=== PATIENT | male | born 1990 | race Caucasian/White ===

== ENCOUNTER → 2020-09-10 13:59 | Outpatient (BNVA) | payer BC, SELFPAY | PROVIDERS: Family Provider Family Medicine; Referring Provider Physician Assistant; Visit Provider Specialist | DX: G56.02 Carpal tunnel syndrome, left upper limb (principal); R20.0 Anesthesia of skin; R20.2 Paresthesia of skin | CPT/HCPCS: 95908 ==

== ENCOUNTER → 2021-03-26 09:07 | Outpatient (BNVA) | payer BC, SELFPAY | PROVIDERS: Family Provider Family Medicine; Visit Provider Nurse Practitioner Family | DX: Z20.822 Contact with and (suspected) exposure to COVID-19 (principal) | CPT/HCPCS: 87400; 87635 ==

== ENCOUNTER → 2021-06-03 16:42 | Outpatient (BNVA) | payer BC, SELFPAY | PROVIDERS: Family Provider Family Medicine; Visit Provider Nurse Practitioner Family | DX: Z20.822 Contact with and (suspected) exposure to COVID-19 (principal) | CPT/HCPCS: 87635 ==

== ENCOUNTER → 2023-12-27 13:24 | Outpatient (BNVA) | payer BC, SELFPAY | PROVIDERS: Family Provider Family Medicine; Visit Provider Emergency Medicine | DX: J02.9 Acute pharyngitis, unspecified (principal) | CPT/HCPCS: 87071; 87880 ==

== ENCOUNTER 2024-08-02 15:48 | Emergency (ER) | payer BC, SELFPAY ==
[2024-08-02 15:53] VITALS: BP 138/83; PULSE 100; RESP 17; TEMP 36.7; O2SAT 98; BMI 31.9
--- NOTE | 2024-08-02 16:10 | USR_ITS ---
PROCEDURE INFORMATION: Exam: US Duplex Right Lower Extremity Veins, Limited Exam date and time: 08/02/2024 4:24 PM Age: 34 years old Clinical indication: Pain; Leg, lower; Right; Additional info: Leg pain TECHNIQUE: Imaging protocol: Real-time duplex ultrasound of the right extremity with 2-D anthony scale, color Doppler flow and spectral waveform analysis including responses to compression and other maneuvers (when performed) with image documentation. Limited exam was focused on the right lower extremity veins. COMPARISON: No relevant prior studies available. FINDINGS: Right deep veins: Unremarkable. The common femoral, femoral, proximal profunda femoral, popliteal, posterior tibial and peroneal veins are patent without thrombus. Normal Doppler waveforms. Normal compressibility and/or augmentation response. Superficial veins: Greater saphenous vein at the saphenofemoral junction is patent without thrombus. Soft tissues: Unremarkable. US/[place] [id number] IMPRESSION: No sonographic evidence of deep vein thrombosis.
--- NOTE | 2024-08-02 17:24 | ED_ITS ---
HPI - Extremity Problem 2 General: Chief complaint: Extremity Problem,Nontraumatic Stated complaint: right leg pain Time Seen by Provider: 08/02/24 15:51 Source: patient Mode of arrival: ambulatory Limitations: no limitations History of Present Illness: Patient is a 34-year-old male who presents to ED today with complaint of redness, warmth, and tenderness to the medial aspect of his right thigh that he noticed about a week or so ago. He states pain initially began to his posterior knee but then later began noticing redness to the medial thigh. He was seen at a walk-in clinic today and diagnosed with a superficial phlebitis and sent to the emergency department for imaging/rule out DVT. He does drive for long periods of time. He states he is having some mild low-grade fevers and chills. He has not had any recent injury or trauma or injections. He is not having any calf pain. No recent insect bites, abrasions, scrapes, etc. MD Complaint: extremity pain Onset (ago): day(s) Pain Consistency: constant Location: right and lower extremity (thigh) Radiation: none Relieving factors: nothing Exacerbating factors: weight bearing, walking and palpation Associated symptoms: Reports fever(s) (subjective) and other (chills); Deny chest pain Related Data Home Medications ?Medication ?Instructions ?Recorded ?Confirmed sertraline 50 mg tablet (Zoloft) 50 mg PO DAILY 08/02/24 Previous Rx's ?Medication ?Instructions ?Recorded clindamycin HCl 300 mg capsule 300 mg PO Q6H 7 days #2 8 caps 08/02/24 hydrocodone 5 mg-acetaminophen 325 1 tab PO Q6H PRN pa in #14 tabs 08/02/24 mg tablet Allergies Allergy/AdvReac Type Severity Reaction Status Date / Time No Known Allergies Allergy Verified 12/27/23 13:12 Review of Systems 2 Const: Reports: fever(s) (subjective) and chills; Denies: body aches, fatigue or malaise Card: Denies: chest pain Resp: Denies: dyspnea Musc: Reports: extremity pain; Denies: neck pain, back pain, joint pain, joint swelling, joint redness, joint warmth or joint stiffness Skin/Breast: Reports: erythema and skin tenderness Neuro: Denies: headache(s), numbness in extremities, weakness in extremities or sensory changes PFS ED 2 PFSH: Social History Smoking and tobacco/nicotine status: never used tobacco/nicotine Physical Exam 2 Const: COMMON NORMALS: no acute distress, average body habitus, patient oriented x3, no limitations, healthy appearing, alert and well nourished G ENERAL APPEARANCE: cooperative Resp: COMMON NORMALS: normal respiratory effort and clear to auscultation bilaterally AUSCULTATION: clear to auscultation bilaterally Cardio: COMMON NORMALS: regular rate and regular rhythm RATE: regular rate RHYTHM: regular rhythm Extremity: COMMON NORMALS: full ROM, capillary refill normal, no joint enlargement, no clubbing, cyanosis or edema, no calf tenderness and no pedal edema GENERAL: Yes normal exam except as noted RIGHT LOWER EXTREMITY: Yes upper leg EXTREMITY IMAGE (FRONT): 1. tender erythematous area with no fluctuance; mildly indurated with no possible palpable cord although exam is somewhat limited due to pain; no skin lesions, bites, scratches, entry points; posterior knee normal Neuro: COMMON NORMALS: patient oriented x3, moves all extremities, no focal motor deficits and no sensory deficits noted SENSORIUM/ORIENTATION: Yes alert Skin: NARRATIVE SKIN EXAM: see above Course 2 Vital Signs: Vital signs: Vital Signs Temperature 98.1 F 08/02/24 15:53 Pulse Rate 100 08/02/24 15:53 Respiratory Rate 18 08/02/24 17:44 Blood Pressure 138/83 08/02/24 15:53 Pulse Oximetry 98 08/02/24 15:53 Oxygen Delivery Me thod Room Air 08/02/24 15:53 MDM - Extremity (Nontraumatic) Medical Decision Making US negative for DVT. Did speak to bi technical lead who did not visualize any underlying fluid collections. Area is erythematous and warm to the touch. Will cover with antibiotics for a cellulitis. He was given IM cefazolin prior to discharge and be placed on clindamycin. He does have follow-up with primary care tomorrow. Other diagnoses could include a superficial phlebitis although thought to be less likely given the amount of pain, redness, and warmth. Unlikely suppurative as he has not had any recent injections/cannulizations. Return precautions discussed. Medical Records I reviewed the patient's medical records. Lab Data I reviewed the patient's lab results. Radiology Impressions Venous Duplex 08/02/24 16:10 IMPRESSION: No sonographic evidence of deep vein thrombosis. All radiology interpretation(s) finalized by discharge Discharge Plan Discharge Patient Disposition: Home Clinical Impression: Superficial phlebitis of right leg, Cellulitis of right thigh Condition: Stable Prescriptions: New clindamycin HCl 300 mg capsule 300 mg PO Q6H 7 Days Qty: 28 0RF hydrocodone-acetaminophen 5-325 mg tablet 1 tab PO Q6H PRN (Reason: pain) Qty: 14 0RF No Action sertraline [Zoloft] 50 mg tablet 50 mg PO DAILY Discharge Orders: Discharge ED (Routine); Ordered 08/02/24 Ordered By: Magalys Roger Activity Restrictions/Additional Instructions: As we discussed, ultrasound was negative for DVT. They do not see any drainable fluid collections. Please fill your antibiotics and start them immediately. You were given IM antibiotics prior to discharge today. You may use your pain medication sparingly. Please follow-up with primary care as scheduled tomorrow. The redness has been outlined today with a skin marker. You need to return to the emergency department for worsening pain, inability to tolerate your antibiotics, fevers, generally feeling worse, or redness spreading outside of the marked edges. Print Language: Romanian Coding Level of Care Code ED Director Of Golf for Ang Karimi
[2024-08-02 17:44] VITALS: RESP 18
[2024-08-02] MEDS: morphine 4 mg/mL SDV 1 mL IM (17:44)
[2024-08-02] MEDS: ondansetron 2 mg/ML SDV 2 mL 4 MG IM (17:44)
[2024-08-02] MEDS: ceFAZolin 1,000 MG in water for injection-sterile 2.5 ML 0.01 MG IM (17:48)
== END 2024-08-02 17:51 | disposition home or self-care (01) ==
PROVIDERS: Emergency Provider Physician Assistant
DX: I80.01 Phlebitis and thrombophlebitis of superficial vessels of right lower extremity (principal); L03.115 Cellulitis of right lower limb
CPT/HCPCS: 93971; 96372; 99284; J0690; J2270; J2405